=== PATIENT | male | born 1950 | race Caucasian/White ===

== ENCOUNTER 2021-03-04 07:40 | Day surgery (SDC) | payer MEDICARE ==
[2021-03-04] VITALS (15 sets, daily range): BP systolic 112–161; BP diastolic 78–95
[~2021-03-04] VITALS: Ht 185.4 cm; Wt 113.4 kg
[~2021-03-04 07:40] MED LIST: APIX5TAB3 PO; DILT180C66 PO; FURO40TA4 PO; METO50TA16 PO
[2021-03-04] MEDS ORDERED: POTA10CA44 PO (08:12)
[2021-03-04] MEDS ORDERED: normal saline 1000ml 1,000 ML IV SCH (08:15)
[2021-03-04] MEDS ORDERED: fentaNYL/PF 50MCG/1 ML 2ML syringe IV ONE (08:15)
[2021-03-04] MEDS ORDERED: MIDAZolam 1mg/ml 10ml vial IV ONE (08:15)
[2021-03-04] MEDS ORDERED: FURO40TA4 PO (08:21)
[2021-03-04] MEDS ORDERED: APIX5TAB3 PO (08:21)
[2021-03-04] MEDS ORDERED: METO100T14 PO (08:21)
[2021-03-04] MEDS ORDERED: DILT-115 PO (08:21)
[2021-03-04 08:58] LABS: ALBUMIN 3.6 G/DL (3.4-5.0); ANION GAP 8 (8-16); BLOOD UREA NITROGEN 14 MG/DL (7-18); BUN/CREATININE RATIO 11.5 (5.4-32.0); CALCIUM 8.9 MG/DL (8.5-10.1); CHLORIDE 106 MMOL/L (99-107); CREATININE 1.22 MG/DL (0.60-1.10); GLUCOSE 115 MG/DL (70-104); MAGNESIUM 1.8 MG/DL (1.5-2.4); POTASSIUM 4.2 MMOL/L (3.5-5.1); SODIUM 141 MMOL/L (135-145); TOTAL CARBON DIOXIDE 26.9 MMOL/L (24-32); eGFR 59 ML/MIN
[2021-03-04 09:01] LABS: BASOPHILS % (AUTO) 0.3 % (0-1); EOSINOPHILS # (AUTO) 0.2 X10'3 (0-0.9); EOSINOPHILS % (AUTO) 1.6 % (0-6); HEMATOCRIT 45.4 % (42.0-52.0); HEMOGLOBIN 15.6 g/dl (14.0-17.9); LYMPHOCYTES % (AUTO) 8.5 % (21-51); MEAN CORPUSCULAR HEMOGLOBIN 32.4 PG (27.0-31.0); MEAN CORPUSCULAR HGB CONC 34.4 g/dL (33.0-36.5); MEAN CORPUSCULAR VOLUME 94.1 FL (78-98); MEAN PLATELET VOLUME 7.5 FL (7.4-10.4); MONOCYTES # (AUTO) 0.8 X10'3 (0-0.9); MONOCYTES % (AUTO) 6.6 % (2-12); NEUTROPHILS # (AUTO) 9.5 X10'3 (1.8-7.7); PLATELET COUNT 216 X10'3 (140-440); RED BLOOD COUNT 4.83 X10'6 (4.70-6.10); RED CELL DISTRIBUTION WIDTH 12.6 % (11.5-14.5); WHITE BLOOD COUNT 11.5 X10'3 (4.5-11.0)
== END 2021-03-04 13:25 | disposition home or self-care (01) ==
LOC: SSTAY O 07:40
PROVIDERS: ATTEND Internal Medicine Cardiovascular Disease
DX: I48.19 Other persistent atrial fibrillation (principal); I10 Essential (primary) hypertension; Z79.899 Other long term (current) drug therapy; Z98.890 Other specified postprocedural states; Z72.89 Other problems related to lifestyle; Z79.01 Long term (current) use of anticoagulants
CPT/HCPCS: 36415; 80048; 83735; 85025; 85610; 92960; 93005; J2250; J3010; J7030

== ENCOUNTER 2024-03-28 08:35 | Emergency (ER) | payer MEDICARE ==
[~2024-03-28] VITALS: Ht 188 cm; Wt 108.0 kg
[~2024-03-28 08:35] MED LIST changes: +DILT-115 PO; -DILT180C66 PO; +METO100T14 PO; -METO50TA16 PO; +POTA10CA85 PO
[2024-03-28 08:38] VITALS: BP 156/59; PULSE 50; RESP 16; TEMP 98.1; O2SAT 96
[2024-03-28] MEDS ORDERED: tetanus & diphtheria toxoid (Td) vaccine 0.5ml IMVAC ONE (09:20)
[2024-03-28] MEDS: LIDOcaine 1% 30ml preserv. free vial IJ ONE (09:40)
[2024-03-28] MEDS ORDERED: diph,pertuss (acell), tet (DTaP-PEDs)/PF (PEDIATRIC) 0.5ml syringe IMVAC ONE (09:45)
[2024-03-28] MEDS: bacitracin 15gm ointment TP ONE (10:31)
[2024-03-28] MEDS: TETanus/Pertussis (Acell)/Diphther VAC/PF (Tdap-Adult) 0.5ml syringe IMVAC ONE (10:32)
== END 2024-03-28 10:39 | disposition home or self-care (01) ==
LOC: ER 08:36
DX: L03.012 Cellulitis of left finger (principal); I10 Essential (primary) hypertension; Z79.899 Other long term (current) drug therapy
CPT/HCPCS: 10060; 87070; 87077; 87186; 90715; 99283; A6402; G0008; J7030; Z7610; 90471; A6449

== ENCOUNTER 2024-06-13 07:06 | Day surgery (SDC) | payer MEDICARE ==
[2024-06-13] VITALS (10 sets, daily range): BP systolic 101–141; BP diastolic 57–93; PULSE 46–96; RESP 16; TEMP 98.2; O2SAT 92–99
[~2024-06-13] VITALS: Ht 188 cm; Wt 106.0 kg
[~2024-06-13 07:06] MED LIST changes: -POTA10CA85 PO; +POTA10CA95 PO
[2024-06-13] MEDS ORDERED: HYDR12.55 PO (07:38)
[2024-06-13] MEDS ORDERED: FLEC100T2 PO ×2 (07:40→07:42)
[2024-06-13] MEDS ORDERED: AMLO2.5T2 PO (07:42)
[2024-06-13 08:04] LABS: INR 1.2 INR; PROTHROMBIN TIME 12.4 SECONDS (9.0-12.0)
[2024-06-13 08:06] LABS: BASOPHILS % (AUTO) 0.2 % (0-1); EOSINOPHILS # (AUTO) 0.3 X10'3 (0-0.9); EOSINOPHILS % (AUTO) 2.2 % (0-6); HEMATOCRIT 50.9 % (42.0-52.0); LYMPHOCYTES # (AUTO) 1.4 X10'3 (1.1-4.8); LYMPHOCYTES % (AUTO) 11.6 % (21-51); MEAN CORPUSCULAR HGB CONC 33.5 g/dL (33.0-36.5); MEAN CORPUSCULAR VOLUME 95.6 FL (78-98); MEAN PLATELET VOLUME 7.3 FL (7.4-10.4); MONOCYTES # (AUTO) 0.7 X10'3 (0-0.9); MONOCYTES % (AUTO) 5.6 % (2-12); NEUTROPHILS # (AUTO) 9.4 X10'3 (1.8-7.7); NEUTROPHILS % (AUTO) 80.4 % (42-75); PLATELET COUNT 232 X10'3 (140-440); RED BLOOD COUNT 5.33 X10'6 (4.70-6.10); RED CELL DISTRIBUTION WIDTH 12.9 % (11.5-14.5); WHITE BLOOD COUNT 11.7 X10'3 (4.5-11.0)
[2024-06-13] MEDS: MIDAZolam 1mg/ml 10ml vial IV ONE (08:13)
[2024-06-13] MEDS: fentaNYL/PF 50MCG/1 ML 2ML syringe IV ONE (08:13)
[2024-06-13] MEDS: normal saline 1000ml 1,000 ML IV SCH (08:14)
[2024-06-13 08:19] LABS: ALBUMIN 3.7 G/DL (3.4-5.0); ANION GAP 9 (8-16); BLOOD UREA NITROGEN 21 MG/DL (7-18); BUN/CREATININE RATIO 17.1 (10.0-20.0); CALCIUM 9.5 MG/DL (8.5-10.1); CHLORIDE 106 MMOL/L (99-107); CREATININE 1.23 MG/DL (0.60-1.10); GLUCOSE 120 MG/DL (70-104); MAGNESIUM 1.8 MG/DL (1.5-2.4); POTASSIUM 3.7 MMOL/L (3.5-5.1); SODIUM 144 MMOL/L (135-145); TOTAL CARBON DIOXIDE 28.7 MMOL/L (24-32); eCRCL 64 ML/MIN; eGFR 58 ML/MIN
== END 2024-06-13 09:30 | disposition home or self-care (01) ==
LOC: SSTAY O 07:06
PROVIDERS: ATTEND Internal Medicine Cardiovascular Disease
DX: I48.91 Unspecified atrial fibrillation (principal); I10 Essential (primary) hypertension; Z79.01 Long term (current) use of anticoagulants; Z79.899 Other long term (current) drug therapy; Z98.41 Cataract extraction status, right eye; Z98.42 Cataract extraction status, left eye; Z98.890 Other specified postprocedural states; Z82.49 Family history of ischemic heart disease and other diseases of the circulatory system; Z80.9 Family history of malignant neoplasm, unspecified
CPT/HCPCS: 36415; 80048; 83735; 85025; 85610; 92960; 93005; J2250; J3010; J7030; Z7610